=== PATIENT | female | born 1945 | race Two or more races ===

== ENCOUNTER 2019-09-02 07:14 | Outpatient (CLI) | payer OTHER | END 2019-09-02 07:17 | disposition home or self-care (01) | LOC: SONOGRAMA 07:14 | DX: E04.1 Nontoxic single thyroid nodule (principal) ==

== ENCOUNTER 2020-06-25 08:05 | Outpatient (CLI) | payer OTHER | END 2020-06-25 08:07 | disposition home or self-care (01) | LOC: SONOGRAMA 08:05 | PROVIDERS: ATTEND Pathology Anatomic Pathology & Clinical Pathology | DX: E04.2 Nontoxic multinodular goiter (principal) ==

== ENCOUNTER 2021-03-18 08:20 | Emergency (ER) | payer OTHER ==
[~2021-03-18] VITALS: Ht 172.7 cm; Wt 87.1 kg
[2021-03-18] MEDS ORDERED: TOPROL XL25 M1 PO (08:34)
[2021-03-18] MEDS ORDERED: AVAPRO75 MG PO (08:34)
[2021-03-18] MEDS ORDERED: METHOTREXATE2.5 MG PO (08:35)
== END 2021-03-18 12:12 | disposition home or self-care (01) ==
LOC: ER 08:20
DX: R06.02 Shortness of breath (principal); R53.83 Other fatigue

== ENCOUNTER 2021-03-22 08:38 | Outpatient (CLI) | payer OTHER ==
[~2021-03-22 08:38] MED LIST: AVAPRO75 MG PO; METHOTREXATE2.5 MG PO; TOPROL XL25 M1 PO
== END 2021-03-22 08:39 | disposition home or self-care (01) ==
LOC: SONOGRAMA 08:38
PROVIDERS: ATTEND Pathology Anatomic Pathology & Clinical Pathology
DX: D34 Benign neoplasm of thyroid gland (principal); E04.1 Nontoxic single thyroid nodule

== ENCOUNTER 2024-01-29 13:13 | Outpatient (CLI) | payer OTHER | END 2024-01-29 13:15 | disposition home or self-care (01) | LOC: SONOGRAMA 13:13 | PROVIDERS: ATTEND Pathology Anatomic Pathology & Clinical Pathology | DX: D34 Benign neoplasm of thyroid gland (principal); E07.89 Other specified disorders of thyroid; E04.1 Nontoxic single thyroid nodule ==

== ENCOUNTER 2025-06-17 07:21 | Emergency (ER) | payer OTHER ==
[~2025-06-17] VITALS: Ht 172.7 cm; Wt 84.8 kg
[2025-06-17] MEDS ORDERED: KETOROLAC TROMETHAMINE 60 MG VIAL IM ONE (08:45)
[2025-06-17] MEDS ORDERED: NORFLEX100MG PO (11:51)
== END 2025-06-17 12:22 | disposition home or self-care (01) ==
LOC: ER 07:21
DX: M25.561 Pain in right knee (principal); I10 Essential (primary) hypertension
CPT/HCPCS: 73560; 96372; 99283; J1885